=== PATIENT | male | born 1995 | race Caucasian/White ===

== ENCOUNTER 2016-09-25 23:18 | Emergency (ER) | payer SELFPAY ==
[~2016-09-25] VITALS: Ht 175.3 cm; Wt 59.0 kg
[~2016-09-25 23:18] MED LIST: PROM25SU8 PO; PROT40TA PO
[2016-09-25 23:22] VITALS: BP 129/71; PULSE 52; RESP 16; TEMP 97.3; O2SAT 99
[2016-09-25] MEDS ORDERED: SODIUM CHLOR 0.9% 1000 ML INJ 1,000 ML IV SCH (23:33)
--- NOTE | 2016-09-25 23:43 | PD ---
HPI Chief Complaint: GI Complaint Time Seen by Provider: 23:30 Travel History International Travel<30 days: No Contact w/Intl Traveler<30days: No Traveled to known affect area: No History of Present Illness HPI 20-year-old male with history of cannabis hyperemesis here with complaint of nausea and vomiting. Patient continues to smoke marijuana daily. States that he has had now 1 day of epigastric abdominal pain and burning in nature with intractable nausea and vomiting. No hematemesis. Patient is no longer on a antacid. He states that he has a history of ulcers the patient has never had endoscopy to confirm this. No fevers, chills or diarrhea. Patient states that warm shower always helps his symptoms and he has been trying this today with some improvement. [facility] Past Medical History Medical History: Denies Significant Hx Diminished Hearing: No Immunizations Current: Yes Influenza Vaccination: No Past Surgical History Surgical History: No Previous Surgery Social History Alcohol Use: No Tobacco Use: Yes (1/2 ppd) Substance Use: Yes (marijuana) Allergies-Medications (Allergen,Severity, Reaction): Coded Allergies: No Known Allergies (Verified , 09/25/16) Reported Meds & Prescriptions Reported Meds & Active Scripts Active Review of Systems Except as stated in HPI: all other systems reviewed are Neg Physical Exam Narrative GENERAL: Thin male in no acute distress SKIN: Focused skin assessment warm/dry. HEAD: Normocephalic. EYES: No scleral icterus. No injection or drainage. ENT: Mucous membranes pink and moist. NECK: Supple CARDIOVASCULAR: Regular rate and rhythm. No murmur appreciated. RESPIRATORY: No accessory muscle use. Clear to auscultation. Breath sounds equal bilaterally. GASTROINTESTINAL: Abdomen soft, minimal epigastric abdominal pain without rebound or guarding MUSCULOSKELETAL: Normal gait NEUROLOGICAL: Awake and alert. Normal speech. PSYCHIATRIC: Appropriate mood and affect; insight and judgment normal. Data Data Last Documented VS Vital Signs Date Time Temp Pulse Resp B/P Pulse Ox O2 Delivery O2 Flow Rate FiO2 09/26/16 00:18 77 12 126/88 100 Room Air 09/25/16 23:22 97.3 Orders Complete Blood Count With Diff (09/25/16 23:33) Comprehensive Metabolic Panel (09/25/16 23:33) Lipase (09/25/16 23:33) Iv Access Insert/Monitor (09/25/16 23:33) Oximetry (09/25/16 23:33) Ondansetron Inj (Zofran Inj) (09/25/16 23:45) Sodium Chlor 0.9% 1000 Ml Inj (Ns 1000 M (09/25/16 23:33) Sodium Chloride 0.9% Flush (Ns Flush) (09/25/16 23:45) Ketorolac Inj (Toradol Inj) (09/25/16 23:45) Diphenhydramine Inj (Benadryl Inj) (09/25/16 23:45) Metoclopramide Inj (Reglan Inj) (09/25/16 23:45) Pantoprazole Inj (Protonix Inj) (09/25/16 23:45) Prochlorperazine Inj (Compazine Inj) (09/26/16 00:45) Hydroxyzine Hcl Inj (Vistaril Inj) (09/26/16 00:45) Ondansetron Inj (Zofran Inj) (09/26/16 00:45) Sodium Chlor 0.9% 1000 Ml Inj (Ns 1000 M (09/26/16 01:15) Labs Laboratory Tests Test 09/25/16 23:55 White Blood Count 18.6 TH/MM3 Red Blood Count 4.83 MIL/MM3 Hemoglobin 14.5 GM/DL Hematocrit 43.2 % Mean Corpuscular Volume 89.4 FL Mean Corpuscular Hemoglobin 30.0 PG Mean Corpuscular Hemoglobin 33.5 % Concent Red Cell Distribution Width 13.4 % Platelet Count 260 TH/MM3 Mean Platelet Volume 9.9 FL Neutrophils (%) (Auto) 75.6 % Lymphocytes (%) (Auto) 15.6 % Monocytes (%) (Auto) 8.2 % Eosinophils (%) (Auto) 0.1 % Basophils (%) (Auto) 0.5 % Neutrophils # (Auto) 14.1 TH/MM3 Lymphocytes # (Auto) 2.9 TH/MM3 Monocytes # (Auto) 1.5 TH/MM3 Eosinophils # (Auto) 0.0 TH/MM3 Basophils # (Auto) 0.1 TH/MM3 CBC Comment DIFF FINAL Differential Comment Sodium Level 139 MEQ/L Potassium Level 3.8 MEQ/L Chloride Level 106 MEQ/L Carbon Dioxide Level 23.4 MEQ/L Anion Gap 10 MEQ/L Blood Urea Nitrogen 14 MG/DL Creatinine 1.07 MG/DL Estimat Glomerular Filtration 88 ML/MIN Rate Random Glucose 152 MG/DL Calcium Level 9.1 MG/DL Total Bilirubin 0.5 MG/DL Aspartate Amino Transf 24 U/L (AST/SGOT) Alanine Aminotransferase 24 U/L (ALT/SGPT) Alkaline Phosphatase 61 U/L Total Protein 7.6 GM/DL Albumin 4.4 GM/DL Lipase 52 U/L [facility] Medical Decision Making Medical Screen Exam Complete: Yes Emergency Medical Condition: Yes Medical Record Reviewed: Yes Differential Diagnosis 20-year-old male with history of cannabis hyperemesis syndrome here with nausea and vomiting and burning epigastric abdominal pain 1 day. Differential includes gastritis, pancreatitis, hepatobiliary pathology, cannabis hyperemesis , cyclic vomiting. Less likely peptic ulcer disease. Abdominal examination is benign making peritoneal pathology is less likely. Narrative Course Patient placed on monitor, IV established and blood obtained. Patient given 1 L normal saline bolus, Toradol, Zofran, Benadryl, Reglan, IV PPI. CBC, CMP, lipase notable for WBC 18.6, likely stress demargination. His abdominal examination remains benign. Patient felt improved but was given oral challenge and failed. Treated with repeat Zofran, Compazine, Vistaril and second liter normal saline bolus. Patient was able to tolerate orals and will be discharged home. Diagnosis Primary Impression: Cannabinoid hyperemesis syndrome Referrals: Primary Care Physician as needed [facility] needed Patient Instructions: Acute Nausea and Vomiting (DC), Cannabis Abuse (ED), General Instructions Additional Instructions: Medications as prescribed. Marijuana cessation is discussed. Med/Other Pt SpecificInfo: Prescription(s) given Scripts Pantoprazole (Protonix)40 Mg Tab40 Mg PO DAILY #30 TAB Ref 0 Prov:Quynh Vasquez MD 09/26/16 Promethazine Supp (Phenergan Supp)25 Mg Supp25 Mg RECTAL Q4H PRN (NAUSEA OR VOMITING) #10 SUPP Ref 0 Prov:Quynh Vasquez MD 09/26/16 Disposition: 01 DISCHARGE HOME Condition: Stable Quynh Vasquez MD Sep 25, 2016 23:43
[2016-09-25] MEDS ORDERED: SODIUM CHLORIDE 0.9% FLUSH 10 ML FLUSH IV FLUSH PRN (23:45)
[2016-09-25] MEDS ORDERED: PANTOPRAZOLE SODIUM 40 MG VIAL IVP ONE (23:45)
[2016-09-25] MEDS ORDERED: diphenhydrAMINE HCL 50 MG/ML VIAL IVP ONE (23:45)
[2016-09-25] MEDS ORDERED: METOCLOPRAMIDE HCL 10 MG/2 ML VIAL IVP ONE (23:45)
[2016-09-25] MEDS ORDERED: ONDANSETRON HCL 4 MG/2 ML VIAL IVP ONE (23:45)
[2016-09-25] MEDS ORDERED: KETOROLAC TROMETHAMINE 30 MG/ML (IVP) VIAL IVP ONE (23:45)
[2016-09-26 00:16] LABS: AUTOMATED NEUTROPHIL # 14.1 TH/MM3 (1.8-7.7); BASOPHIL # 0.1 TH/MM3 (0-0.2); BASOPHIL % 0.5 % (0.0-2.0); EOSINOPHIL % 0.1 % (0.0-4.0); HEMATOCRIT 43.2 % (39.0-51.0); HEMO FLAGS DIFF FINAL; LYMPH % 15.6 % (9.0-44.0); LYMPHOCYTE # 2.9 TH/MM3 (1.0-4.8); MEAN CELL VOLUME 89.4 FL (80.0-100.0); MEAN CORPUSCULAR HGB CONC 33.5 % (32.0-36.0); MONO % 8.2 % (0.0-8.0); NEUT % 75.6 % (16.0-70.0); PLATELET COUNT 260 TH/MM3 (150-450); RED BLOOD COUNT 4.83 MIL/MM3 (4.50-5.90); RED CELL DISTRIBUTION WIDTH 13.4 % (11.6-17.2); WHITE BLOOD COUNT 18.6 TH/MM3 (4.0-11.0)
[2016-09-26 00:18] VITALS: BP 126/88; PULSE 77; RESP 12; O2SAT 100
[2016-09-26 00:37] LABS: ALT (GPT) 24 U/L (9-52); ANION GAP 10 MEQ/L (5-15); AST (GOT) 24 U/L (15-39); BICARBONATE 23.4 MEQ/L (21.0-32.0); BLOOD UREA NITROGEN 14 MG/DL (7-18); CHLORIDE 106 MEQ/L (98-107); GLOMERULAR FILTRATION RATE 88 ML/MIN (>89); POTASSIUM 3.8 MEQ/L (3.5-5.1); SODIUM (NA) 139 MEQ/L (136-145)
[2016-09-26 00:39] LABS: ALKALINE PHOSPHATASE 61 U/L (45-117); TOTAL BILIRUBIN ADULT 0.5 MG/DL (0.2-1.0)
[2016-09-26] MEDS ORDERED: PROCHLORPERAZINE INJ 10 MG/2 ML VIAL IV PUSH ONE (00:45)
[2016-09-26] MEDS ORDERED: ONDANSETRON HCL 4 MG/2 ML VIAL IV PUSH ONE (00:45)
[2016-09-26] MEDS ORDERED: SODIUM CHLOR 0.9% 1000 ML INJ 1,000 ML IV ONE (01:15)
[2016-09-26] MEDS ORDERED: PROT40TA PO (01:59)
[2016-09-26] MEDS ORDERED: PROM1SUP7 RECTAL (01:59)
== END 2016-09-26 02:32 | disposition home or self-care (01) ==
LOC: NEPE 23:18
DX: R11.10 Vomiting, unspecified (principal); R10.13 Epigastric pain; D72.829 Elevated white blood cell count, unspecified; F12.90 Cannabis use, unspecified, uncomplicated; F17.200 Nicotine dependence, unspecified, uncomplicated; Z87.19 Personal history of other diseases of the digestive system
CPT/HCPCS: 80053; 83690; 85025; 96361; 96372; 96374; 96375; 96376; 99284; C9113; J0780; J1200; J1885; J2405; J2765; J3410; J7030

== ENCOUNTER 2016-12-13 16:00 | Emergency (ER) | payer SELFPAY ==
[~2016-12-13] VITALS: Ht 170.2 cm; Wt 60.0 kg
[~2016-12-13 16:00] MED LIST changes: +PROM1SUP7 RECTAL; -PROM25SU8 PO
[2016-12-13] MEDS ORDERED: SODIUM CHLOR 0.9% 1000 ML INJ 1,000 ML IV SCH (16:55)
[2016-12-13 17:00] VITALS: RESP 17; O2SAT 99
[2016-12-13] MEDS ORDERED: LIDOCAINE VISCOUS 2% SOLN 15 ML UDC PO ONE (17:00)
[2016-12-13] MEDS ORDERED: ALUMINUM/MAGNESIUM/SIMETH 30 ML CUP PO ONE (17:00)
[2016-12-13] MEDS ORDERED: MORPHINE SULFATE 8 MG/ML INJ IV PUSH ONE (17:00)
[2016-12-13] MEDS ORDERED: ONDANSETRON HCL 4 MG/2 ML VIAL IVP ONE (17:00)
[2016-12-13] MEDS: SODIUM CHLORIDE 0.9% FLUSH 10 ML FLUSH IV FLUSH PRN ×2 (17:03→18:10)
[2016-12-13 17:11] VITALS: RESP 17
[2016-12-13] MEDS ORDERED: PROM1SUP7 RECTAL (17:23)
--- NOTE | 2016-12-13 17:24 | PD ---
HPI Chief Complaint: Abdominal Pain Time Seen by Provider: 16:39 Travel History International Travel<30 days: No Contact w/Intl Traveler<30days: No Traveled to known affect area: No History of Present Illness HPI 21-year-old male arrives complaining of abdominal pain for about 10 hours or so. Location is epigastrium however involves entire stomach. He reports vomiting and diarrhea. He reports a subjective fever. He's had no oral intake today or last night. Some of the history is provided by his routine mother who notes that this is a routine occurrence for the patient. Patient has been belching quite frequently today. Diaphoresis is reported. 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 He has been seen here once before and at that time was diagnosed with a cannabis hyperemesis syndrome. [facility] Past Medical History Diminished Hearing: No Gastrointestinal Disorders: Yes GERD: Yes Immunizations Current: Yes Tetanus Vaccination: < 5 Years Influenza Vaccination: No Past Surgical History Surgical History: No Previous Surgery Social History Alcohol Use: No Tobacco Use: Yes (/2 ppd) Substance Use: Yes (marijuana) Allergies-Medications (Allergen,Severity, Reaction): Coded Allergies: No Known Allergies (Verified , 12/13/16) Reported Meds & Prescriptions Reported Meds & Active Scripts Active Phenergan Supp (Promethazine HCl) 25 Mg Supp 25 Mg RECTAL Q4H PRN Review of Systems Except as stated in HPI: all other systems reviewed are Neg Physical Exam Narrative GENERAL: 41-year-old male no acute distress SKIN: Focused skin assessment warm/dry. HEAD: Atraumatic. Normocephalic. EYES: Pupils equal and round. No scleral icterus. No injection or drainage. ENT: No nasal bleeding or discharge. Mucous membranes pink and moist. NECK: Trachea midline. No JVD. CARDIOVASCULAR: Regular rate and rhythm. No murmur appreciated. RESPIRATORY: No accessory muscle use. Clear to auscultation. Breath sounds equal bilaterally. GASTROINTESTINAL: Soft. Diffuse nonspecific tenderness. MUSCULOSKELETAL: No obvious deformities. No clubbing. No cyanosis. No edema. NEUROLOGICAL: Awake and alert. No obvious cranial nerve deficits. Motor grossly within normal limits. Normal speech. PSYCHIATRIC: Appropriate mood and affect; insight and judgment normal. Data Data Last Documented VS Vital Signs Date Time Temp Pulse Resp B/P Pulse Ox O2 Delivery O2 Flow Rate FiO2 12/13/16 17:11 17 12/13/16 17:00 99 Room Air Orders Complete Blood Count With Diff (12/13/16 16:55) Comprehensive Metabolic Panel (12/13/16 16:55) Lipase (12/13/16 16:55) Iv Access Insert/Monitor (12/13/16 16:55) Ecg Monitoring (12/13/16 16:55) Oximetry (12/13/16 16:55) Ondansetron Inj (Zofran Inj) (12/13/16 17:00) Sodium Chlor 0.9% 1000 Ml Inj (Ns 1000 M (12/13/16 16:55) Sodium Chloride 0.9% Flush (Ns Flush) (12/13/16 17:00) Morphine Inj (Morphine Inj) (12/13/16 17:00) Al-Mag Hy-Si 40-40-4 Mg/Ml Liq (Mag-Al P (12/13/16 17:00) Lidocaine 2% Viscous (Xylocaine 2% Visco (12/13/16 17:00) Labs Laboratory Tests Test 12/13/16 17:00 White Blood Count 20.0 TH/MM3 Red Blood Count 4.78 MIL/MM3 Hemoglobin 14.3 GM/DL Hematocrit 42.5 % Mean Corpuscular Volume 89.1 FL Mean Corpuscular Hemoglobin 30.0 PG Mean Corpuscular Hemoglobin 33.7 % Concent Red Cell Distribution Width 13.3 % Platelet Count 292 TH/MM3 Mean Platelet Volume 9.8 FL Neutrophils (%) (Auto) 91.0 % Lymphocytes (%) (Auto) 4.3 % Monocytes (%) (Auto) 4.2 % Eosinophils (%) (Auto) 0.2 % Basophils (%) (Auto) 0.3 % Neutrophils # (Auto) 18.2 TH/MM3 Lymphocytes # (Auto) 0.9 TH/MM3 Monocytes # (Auto) 0.8 TH/MM3 Eosinophils # (Auto) 0.0 TH/MM3 Basophils # (Auto) 0.1 TH/MM3 CBC Comment DIFF FINAL Differential Comment Sodium Level 138 MEQ/L Potassium Level 3.9 MEQ/L Chloride Level 104 MEQ/L Carbon Dioxide Level 21.9 MEQ/L Anion Gap 12 MEQ/L Blood Urea Nitrogen 14 MG/DL Creatinine 1.04 MG/DL Estimat Glomerular Filtration 90 ML/MIN Rate Random Glucose 169 MG/DL Calcium Level 9.3 MG/DL Total Bilirubin 0.4 MG/DL Aspartate Amino Transf 13 U/L (AST/SGOT) Alanine Aminotransferase 18 U/L (ALT/SGPT) Alkaline Phosphatase 63 U/L Total Protein 7.6 GM/DL Albumin 4.1 GM/DL Lipase 47 U/L [facility]DM Medical Decision Making Medical Screen Exam Complete: Yes Emergency Medical Condition: Yes Medical Record Reviewed: Yes Differential Diagnosis Constipation, Gastritis, Acute Cholecystitis, Biliary Colic, Pancreatitis, DAVILA , Hepatitis, Bowel Obstruction, Cystitis, Mesenteric Ischemia, AAA, Appendicitis , Renal Stone/Hydronephrosis, GERD, perforated viscous Narrative Course CBC & BMP Diagram 12/13/16 17:00 LFTs/Lipase normal Leukocytosis is likely reactive The patient is resting comfortably and feels better, is alert and in no distress. The patients results and examination findings were discussed. The repeat examination is unremarkable and benign. The history, exam, diagnostic testing, and current condition do not suggest any significant pathology to warrant further testing, continued ED treatment, admission, or surgical evaluation at this point. The vital signs have been stable. The patient does not have uncontrollable pain, intractable vomiting, or other significant symptoms. The patient's condition is stable and appropriate for discharge. The patient will pursue further outpatient evaluation with a primary care physician or other designated or consulting physician as indicated in the discharge instructions. The patient expressed understanding and was agreeable with this plan. Diagnosis Primary Impression: Nausea & vomiting Qualified Code: R11.2 - Nausea and vomiting, intractability of vomiting not specified, unspecified vomiting type Additional Impressions: Diarrhea Qualified Code: R19.7 - Diarrhea, unspecified type Abdominal pain Qualified Code: R10.9 - Abdominal pain, unspecified location Referrals: Tutu Suarez MD 2 days Additional Instructions: You have a choice when it comes to health care, and we are glad that you chose [email or web address]. Hopefully, we have met your expectations on today's visit. You are welcome to return to [email or web address] at any time, as we are committed to meeting the health care needs of our community. Med/Other Pt SpecificInfo: Prescription(s) given Scripts Promethazine Supp (Phenergan Supp)25 Mg Supp25 Mg RECTAL Q4H PRN (NAUSEA OR VOMITING) #10 SUPP Ref 0 Prov:Luke Coronado MD 12/13/16 Disposition: 01 DISCHARGE HOME Condition: Stable Luke Coronado MD Dec 13, 2016 17:24
[2016-12-13 17:39] LABS: AUTOMATED NEUTROPHIL # 18.2 TH/MM3 (1.8-7.7); BASOPHIL # 0.1 TH/MM3 (0-0.2); BASOPHIL % 0.3 % (0.0-2.0); EOSINOPHIL % 0.2 % (0.0-4.0); HEMATOCRIT 42.5 % (39.0-51.0); HEMO FLAGS DIFF FINAL; LYMPH % 4.3 % (9.0-44.0); LYMPHOCYTE # 0.9 TH/MM3 (1.0-4.8); MEAN CELL VOLUME 89.1 FL (80.0-100.0); MEAN CORPUSCULAR HGB CONC 33.7 % (32.0-36.0); MONO % 4.2 % (0.0-8.0); PLATELET COUNT 292 TH/MM3 (150-450); RED BLOOD COUNT 4.78 MIL/MM3 (4.50-5.90); RED CELL DISTRIBUTION WIDTH 13.3 % (11.6-17.2)
[2016-12-13 17:55] LABS: ANION GAP 12 MEQ/L (5-15); AST (GOT) 13 U/L (15-37); BICARBONATE 21.9 MEQ/L (21.0-32.0); BLOOD UREA NITROGEN 14 MG/DL (7-18); CHLORIDE 104 MEQ/L (98-107); GLOMERULAR FILTRATION RATE 90 ML/MIN (>89); POTASSIUM 3.9 MEQ/L (3.5-5.1); SODIUM (NA) 138 MEQ/L (136-145)
[2016-12-13 18:01] LABS: ALKALINE PHOSPHATASE 63 U/L (45-117); ALT (GPT) 18 U/L (12-78); TOTAL BILIRUBIN ADULT 0.4 MG/DL (0.2-1.0)
[2016-12-13 18:12] VITALS: BP 120/77; TEMP 97.8
== END 2016-12-13 18:12 | disposition home or self-care (01) ==
LOC: NEPE 16:00
DX: R10.9 Unspecified abdominal pain (principal); R11.2 Nausea with vomiting, unspecified; R19.7 Diarrhea, unspecified; R61 Generalized hyperhidrosis; F17.210 Nicotine dependence, cigarettes, uncomplicated
CPT/HCPCS: 80053; 83690; 85025; 96374; 96375; 99284; J2270; J2405; J7030